=== PATIENT | male | born 1955 | race Caucasian/White ===

== ENCOUNTER 2023-08-12 12:34 | Outpatient (CLI) | payer MEDICARE, SELFPAY | END 2023-08-12 12:35 | disposition home or self-care (01) | LOC: CHSCARD 12:40 | PROVIDERS: PCP Family Medicine; Visit Provider Family Medicine | DX: J44.1 Chronic obstructive pulmonary disease with (acute) exacerbation (principal); R94.2 Abnormal results of pulmonary function studies | CPT/HCPCS: 94060; 94726; 94729 ==

== ENCOUNTER 2023-11-06 08:53 | Outpatient (CLI) | payer MEDICARE, SELFPAY ==
[2023-11-06 09:00] VITALS: PULSE 68; O2SAT 97
[2023-11-06 09:08] VITALS: PULSE 90; O2SAT 94
--- NOTE | 2023-11-06 11:02 | HOMEO2EVAL ---
Evaluation was performed at [facility] [place] Home Oxygen Evaluation RC: Home Oxygen (O2) Evaluation Start: 11/06/23 10:52 Freq: Status: Active Protocol: RPE Activity Type Activity Date Activity User E-sign Co-sign Detail Recorded Client Recorded Date Recorded By Document 11/06/23 09:00 JOHN [email or web address] 11/06/23 11:01 SJB Document 11/06/23 09:08 JOHN [email or web address] 11/06/23 11:01 SJB 11/06/23 11/06/23 09:00 09:08 Home O2 Evaluation [Oxygen] -Test Phase Resting Exercise -Oxygen Delivery Room Air Room Air [Pulse Oximetry] -Pulse Oximetry (90-100 %) 97 94 [Pulse Rate] -Pulse Rate (60-100 beats/min) 68 90 [Evaluation] -Activity Tolerance Good -Rating of Perceived Dyspnea (PD) +1 Mild, Noticeable to the Participant but Not to an Observer -Rate of Perceived Exertion (PE) 11 Fairly light Query Text:Click the Protocol Button to View the RPE Scale [Exercise] -Ambulation Distance (feet) 1,200 -Ambulation Distance (meters) 365.74 [Comments] -Home Oxygen Evaluation Comments Will begin walk Pt walked on room air. approx 1200 ft on room air, talking through eval. Tolerated very well. Sp02 remained at 94% and above. HR upt to 90/ [Charges] -Evaluation Charges O2 Evaluation Charge
== END 2023-11-06 08:54 | disposition home or self-care (01) ==
LOC: CHSCARD 08:54
PROVIDERS: PCP Family Medicine; Visit Provider Nurse Practitioner Family
DX: R06.09 Other forms of dyspnea (principal)
CPT/HCPCS: 94618

== ENCOUNTER 2023-11-13 07:46 | Outpatient (CLI) | payer MEDICARE, SELFPAY ==
--- NOTE | ~2023-11-13 | CT_ITS ---
EXAMINATION: CT chest high resolution wo co DATE: 11/13/2023 08:03 INDICATION: Lung disorder TECHNIQUE: Computed tomography (CT) of the chest was performed without intravenous contrast. Automate d exposure control and iterative reconstruction technique were employed. Exam dose: 173.16 mGy-cm to marc exam DLP. COMPARISON: None FINDINGS: Prominent rather diffuse peripheral bilateral honeycombing and septal soft tissue thickenin g and traction bronchiectasis, most consistent with usual interstitial pneumonia type pulmonary inter stitial fibrosis. No pulmonary consolidation or suspicious pulmonary mass lesion is identified. Multiple up to 9 x 14 mm prevascular lymph nodes. Mild right paratracheal and precarinal lymphadenopa thy. No hilar mass lesion or lymphadenopathy is noted. Thoracic aortic and great vessel and coronary artery calcifications. No thoracic aortic aneurysm. Nor mal heart size. No pericardial or pleural effusion. Small sliding hiatal hernia. Normal morphology of the adrenal glands. No suspicious osteolytic or osteoblastic lesions. Prominent degenerative disc disease in the lower ce rvical spine. IMPRESSION: Usual interstitial pneumonia chronic interstitial pulmonary fibrosis and mild mediastina l lymphadenopathy Reviewed, dictated and finalized at [facility]. Reviewed, dictated and finalized at location B. IMPRESSION: Usual interstitial pneumonia chronic interstitial pulmonary fibros is and mild mediastinal lymphadenopathy
== END 2023-11-13 07:47 | disposition home or self-care (01) ==
LOC: CHSIMG 07:47
PROVIDERS: PCP Family Medicine; Visit Provider Nurse Practitioner Family
DX: J98.4 Other disorders of lung (principal); J84.10 Pulmonary fibrosis, unspecified; R59.0 Localized enlarged lymph nodes
CPT/HCPCS: 71250

== ENCOUNTER 2023-11-26 07:35 | Outpatient (CLI) | payer MEDICARE, SELFPAY ==
[2023-11-26 09:20] LABS: Rheumatoid Factor Screen Negative (Negative)
[2023-11-28 20:39] LABS: ANA Cascade Screen Negative (Negative)
[2023-11-28 21:23] LABS: Anti Cyclic Citrullinated Pept <16 Units (<20)
== END 2023-11-26 07:36 | disposition home or self-care (01) ==
LOC: CHSLAB 07:36
PROVIDERS: PCP Family Medicine; Visit Provider Nurse Practitioner Family
DX: J84.9 Interstitial pulmonary disease, unspecified (principal)
CPT/HCPCS: 36415; 83516; 86038; 86200; 86225; 86235; 86430

== ENCOUNTER 2023-12-11 09:16 | Outpatient (CLI) | payer MEDICARE, SELFPAY | END 2023-12-11 09:17 | disposition home or self-care (01) | PROVIDERS: PCP Family Medicine | DX: M25.562 Pain in left knee (principal) | CPT/HCPCS: 73562 ==

== ENCOUNTER 2023-12-16 07:54 | Outpatient (RCR) | payer MEDICARE, SELFPAY ==
--- NOTE | 2023-12-16 08:58 | OPREHPOC ---
Outpatient Therapy Plan of Care This is a Multidisciplinary Plan of Care that may contain components documented by all disciplines (PT, OT, and ST.) PT Problem 1 PT Problem #1 Knowledge Deficit PT Goal 1 Goal patient to report independence with HEP Target Visit 3 PT Problem 2 PT Problem #2 Pain PT Goal 1 Goal 1. Patient to report highest pain at 2/10 Target Visit 6 PT Problem 3 PT Problem #3 Impaired Range of Motion PT Goal 1 Goal patient to demonstrate 135 deg of L knee flexion with no pain at end range to return to squatting to reach under car Target Visit 6 PT Problem 4 PT Problem #4 Impaired Strength PT Goal 1 Goal patient to demonstrate 5/5 strength of the L knee to return to climbing stairs and stepping up on alignment rack Target Visit 6 PT Problem 5 PT Problem #5 Impaired Functional Mobil PT Goal 1 Goal 1. patient to score less than 20% on LEFS 2. patient to lift 20# from floor with no increase in L knee pain 3. patient to report ability to ambulate 30 min with no increase in L knee pain Target Visit 6
--- NOTE | 2023-12-16 08:58 | PTOPEVAL1 ---
Assessment and note entered by Adriane Watson DPT Evaluation Information Assessment Status Evaluation Diagnosis L knee pain Onset 11/26/23 Subjective Information patient reports he was going down his stairs and felt a pop and has had knee pain since. patient report pain is at the medial border of the patellar tendon. he reports since then his pain has decreased. he has had x-rays that are negative . 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 he reports knee pain is worse with squatting, climbing, stair, and walking prolonged distances. he reports he is wearing a knee brace which seems to help. he reports he also has chronic back and L hip pain. he reports at this time he does not have a follow up with MD scheduled. Reported Pain Level Pain Score 0: Self Report Assessment PT Clinical Summary Mr. Fernández is a 68 year old male who presents to PT with L knee pain. He demonstrates decreased L knee flexion ROM and decreased L knee strength limiting his ability to navigate stairs, climb on alignment racks, squatting and ambulating prolonged distances. He would benefit from skilled PT to address impairments and return to PLOF. Plan of Care Interventions Electrical Stimulation,Gait Training,Hot Pack/Cold Pack,Manual Therapy,Patient/Caregiver Educati, Therapeutic Activities,Therapeutic Exercise PT Services Indicated Yes Treatment Frequency and 1x weekly for 6 visits Duration These treatments will address the objective and functional deficits as defined above. The patient will be advanced safely and appropriately in order for the patient to progress towards his/her prior level of function. Additional exercises will be introduced and as well as a comprehensive home exercise program upon discharge, if needed, ?to ensure carryover of functional gains achieved in the clinic. This treatment plan has been reviewed and agreement upon by the patient.
--- NOTE | 2023-12-30 08:00 | PCPTNOTE ---
Patient cancelled session today. Patient reports he cannot make it today.
== END 2023-12-23 20:00 | disposition home or self-care (01) ==
LOC: CHSPT 07:54
DX: M25.562 Pain in left knee (principal)
CPT/HCPCS: 97110; 97161

== ENCOUNTER 2023-12-31 10:46 | Outpatient (CLI) | payer MEDICARE, SELFPAY ==
[2024-01-06 11:47] LABS: Aspergillus fumigatus NEGATIVE (NEGATIVE)
== END 2023-12-31 10:47 | disposition home or self-care (01) ==
LOC: CHSLAB 10:47
PROVIDERS: PCP Family Medicine; Visit Provider Nurse Practitioner Family
DX: J84.9 Interstitial pulmonary disease, unspecified (principal)
CPT/HCPCS: 36415

== ENCOUNTER 2024-01-04 07:05 | Outpatient (CLI) | payer MEDICARE, SELFPAY ==
--- NOTE | ~2024-01-04 | MR_ITS ---
EXAMINATION: MR knee LT wo con DATE: 01/04/2024 10:52 INDICATION: Left knee pain. TECHNIQUE: Magnetic resonance imaging (MRI) of the left knee was performed without intravenous contra st. Sequences included axial PD-weighted FS FSE, coronal PD-weighted FSE and PD-weighted FS FSE, sagi ttal PD-weighted FSE, and sagittal T2-weighted FS FSE. COMPARISON: Left knee radiographs 12/11/2023 FINDINGS: Medial compartment: There is a radial tear of posterior horn of medial meniscus. There is full-thickness cartilage loss o f femoral condyle involving the central articular surface with mild subchondral edema-like marrow sig nal intensity. There is cartilage surface irregularity of tibial condyle. Lateral compartment: There is free edge fraying of body of lateral meniscus. Lateral compartment cartilage is normal. Patellofemoral compartment: Patellar cartilage is normal. Trochlear cartilage is normal. Ligaments and tendons: The anterior and posterior cruciate ligaments are normal. Medial collateral ligament is normal. There are changes of prior sprain of fibular collateral ligament characterized by thickening and increased signal intensity proximally. Patellar tendon is normal. Fluid: There is a large knee joint effusion. There is mild prepatellar and superficial infrapatellar bursiti s. There is trace fluid in a Hernandez's cyst. IMPRESSION: 1. Severe chondrosis of medial compartment. 2. Tear of medial meniscus. 3. Large knee joint effusion. Reviewed, dictated and finalized at location E.
== END 2024-01-04 07:06 | disposition home or self-care (01) ==
LOC: CHSIMG 07:06
PROVIDERS: PCP Family Medicine; Visit Provider Family Medicine
DX: M25.562 Pain in left knee (principal); M22.8X2 Other disorders of patella, left knee; S83.242A Other tear of medial meniscus, current injury, left knee, initial encounter; M25.462 Effusion, left knee
CPT/HCPCS: 73721

== ENCOUNTER 2024-03-24 10:45 | Outpatient (CLI) | payer MEDICARE, SELFPAY ==
[2024-03-24] VITALS (8 sets, daily range): PULSE 74–97; O2SAT 91–97
--- NOTE | 2024-03-24 12:10 | RCSIXMIN ---
Six Minute Walk RC: Six Minute Walk Start: 03/24/24 12:01 Freq: Status: Active Protocol: Activity Type Activity Date Activity User E-sign Co-sign Detail Recorded Client Recorded Date Recorded By Document 03/24/24 11:03 RES [id number] 03/24/24 12:05 RES Document 03/24/24 11:04 RES [id number] 03/24/24 12:05 RES Document 03/24/24 11:05 RES [id number] 03/24/24 12:05 RES Document 03/24/24 11:06 RES [id number] 03/24/24 12:09 RES Document 03/24/24 11:07 RES [id number] 03/24/24 12:09 RES Document 03/24/24 11:08 RES [id number] 03/24/24 12:09 RES Document 03/24/24 11:09 RES [id number] 03/24/24 12:09 RES Document 03/24/24 11:10 RES [id number] 03/24/24 12:09 RES 03/24/24 03/24/24 03/24/24 11:03 11:04 11:05 Six Minute Walk Test Phase Resting Exercise Exercise Oxygen Delivery Room Air Room Air Room Air Fraction of Inspired Oxygen (%) 21 21 21 Pulse Oximetry (90-100 %) 97 95 93 Pulse Rate (60-100 beats/min) 74 88 89 Activity Tolerance Good Good Good Rating of Perceived Dyspnea (PD) +1 Mild, +1 Mild, +2 Mild, Some Noticeable to Noticeable to Difficulty, the Participant the Participant Noticeable to but Not to an but Not to an the Observer Observer Observer Rate of Perceived Exertion (PE) 6 Very, very 9 Very light 10 light Ambulation Distance (feet) Ambulation Distance (meters) Charge Six Minute Walk 03/24/24 03/24/24 03/24/24 11:06 11:07 11:08 Six Minute Walk Test Phase Exercise Exercise Exercise Oxygen Delivery Room Air Room Air Room Air Fraction of Inspired Oxygen (%) 21 21 21 Pulse Oximetry (90-100 %) 92 93 92 Pulse Rate (60-100 beats/min) 93 95 93 Activity Tolerance Good Good Good Rating of Perceived Dyspnea (PD) +2 Mild, Some +2 Mild, Some +2 Mild, Some Difficulty, Difficulty, Difficulty, Noticeable to Noticeable to Noticeable to the Observer the Observer the Observer Rate of Perceived Exertion (PE) 12 13 Somewhat 14 Hard Ambulation Distance (feet) Ambulation Distance (meters) Charge 03/24/24 03/24/24 11:09 11:10 Six Minute Walk Test Phase Exercise Resting Oxygen Delivery Room Air Room Air Fraction of Inspired Oxygen (%) 21 21 Pulse Oximetry (90-100 %) 91 93 Pulse Rate (60-100 beats/min) 97 95 Activity Tolerance Good Good Rating of Perceived Dyspnea (PD) +2 Mild, Some +2 Mild, Some Difficulty, Difficulty, Noticeable to Noticeable to the Observer the Observer Rate of Perceived Exertion (PE) 14 14 Ambulation Distance (feet) 800 Ambulation Distance (meters) 243.82 Charge
--- NOTE | 2024-03-25 21:26 | P.PCNPFT_ITS ---
PFT Procedure Performed PFT Procedure Performed Spirometry with Pre/Post Bronchodilator Plethysmography (Lung Vol) Diffusing Cap (DLCO) Flow Vol Loop PFT Interpretation DOS: 03/24/2024 REQUESTING: Joseph Tadeo APRN REASON FOR TESTING: Pulmonary fibrosis PULMONARY FUNCTION TESTS Results are reliable and reproducible. The patient was unable to fully exhale with the pre and post FVC. 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 Spirometry: The pre-bronchodilator FEV1 is 1.71 L, 79% predicted. The pre- bronchodilator FVC is 2.01 L, 71% predicted. The FEV1/FVC ratio is 85%. After bronchodilator, the FEV1 is 1.51 L, 69%, -12%. The FVC is 2.22 L, 79%, +10%. The FEV1/FVC ratio is 68%. Lung volumes: The total lung capacity is 3.10 L, 67%. The residual volume is 1.09 L, 56%. The RV/TLC is 35%. Diffusion: DLCO is 6.6, 38%, severely reduced. The DLCO/VA is 2.35, 65%. Flow volume loop: The flow volume loop has an inspiratory limb that is not reproducible. IMPRESSION: This study shows no airway obstruction, mild restrictive impairment with decreased total lung capacity and severely reduced diffusion capacity which improves when alveolar volume is considered. Compared to a PFT 08/12/2023, current values are slightly improved. The total lung capacity previously was 3.21 L, 60%, similar to the value today. The DLCO was 6.4, 34%, similar on today's tests. FEV1 was 1.61 L, 63%, very similar to current testing. Same abnormal inspiratory loop. Nano Hearn MD
--- NOTE | 2024-03-25 21:38 | WPDSIXMINUTE ---
Six Minute Walk Procedure Procedure Performed Pulmonary Stress Test (6 min walk) Six Minute Walk Six Minute Walk: DATE OF SERVICE: 03/24/2024 REQUESTING: Joseph Tadeo APRN REASON FOR TESTING: pulmonary fibrosis SIX MINUTE WALK This test was conducted per ATS guidelines. The initial saturation was 97%, and initial heart rate was 74 beats per minute. The patient walked without stopping, completing 800 ft/ 243.8 m. The saturation at the end of testing was 91%, and the heart rate was 97 beats per minute. IMPRESSION: This is a normal study. The patient did not require supplemental oxygen with exertion. Nano Hearn MD
== END 2024-03-24 10:46 | disposition home or self-care (01) ==
LOC: CHSCARD 10:47
PROVIDERS: PCP Family Medicine; Visit Provider Nurse Practitioner Family
DX: J84.10 Pulmonary fibrosis, unspecified (principal)
CPT/HCPCS: 94060; 94618; 94726; 94729

== ENCOUNTER 2024-07-24 09:51 | Outpatient (CLI) | payer MEDICARE, SELFPAY ==
[2024-07-24 10:16] LABS: Hematocrit 38.5 % (37.0-46.0); Hemoglobin 13.3 g/dL (12.4-15.3); Mean Corpuscular HGB Conc 34.5 g/dL (32-36); Mean Corpuscular Hemoglobin 31.6 pg (27.0-31.0); Mean Corpuscular Volume 91.4 fL (78.0-102.0); Mean Platelet Volume 9.4 fl (8.7-11.0); Platelet Count Result 408 K/mm3 (150-420); Red Blood Count 4.21 M/mm3 (4.70-6.10)
[2024-07-24 10:23] LABS: White Blood Count 20.8 K/mm3 (4.8-10.8)
[2024-07-24 10:41] LABS: Alanine Aminotransferase 24 U/L (16-63); Albumin Level 3.5 g/dL (3.4-5.0); Alkaline Phosphatase 77 U/L (46-116); Amylase 63 U/L (25-115); Anion Gap 8 mmol/L (4-12); Aspartate Amino Transferase 20 U/L (15-37); Bilirubin,Total 1.2 mg/dL (0.00-1.00); Blood Urea Nitrogen 24 mg/dL (7-18); Calcium 9.2 mg/dL (8.5-10.1); Carbon Dioxide 28 mmol/L (21-32); Chloride 101 mmol/L (98-108); Estimated Glomerular Filt Rate > 60; Glucose 94 mg/dL (70-99); Lipase 47 U/L (16-77); Osmolality Calculated 288 mOsm/kg (285-295); Potassium 4.3 mmol/L (3.5-5.1); Sodium 137 mmol/L (136-145); Thyroid Stimulating Hormone 0.49 uIU/mL (0.36-3.74); Total Protein 6.6 g/dL (6.4-8.2)
[2024-07-24 10:44] LABS: Band Neutrophils Percent 1 % (0-6); Lymphocytes Absolute Manual 2.08 K/mm3 (1.1-4.5); Lymphocytes Percent Manual 10 % (18-44); Neutrophils Absolute Manual 17.26 K/mm3 (1.3-6.7); Neutrophils Percent Manual 82 % (46-73); Total Cells Counted 100
[2024-07-24 10:45] LABS: Basophils Percent Manual 0 % (0-1); Eosinophils Absolute Manual 0.41 K/mm3 (0.02-0.50); Eosinophils Percent Manual 2 % (1-6); Monocytes Absolute Manual 1.04 K/mm3 (0.1-0.90); Monocytes Percent Manual 5 % (3-9); Platelet Estimate Adequate (Adequate)
== END 2024-07-24 09:52 | disposition home or self-care (01) ==
PROVIDERS: PCP Family Medicine; Visit Provider Family Medicine
DX: R10.9 Unspecified abdominal pain (principal); I10 Essential (primary) hypertension; R19.7 Diarrhea, unspecified
CPT/HCPCS: 36415; 80053; 82150; 83690; 84443; 85025

== ENCOUNTER 2024-07-24 11:46 | Observation (INO) | payer MEDICARE, SELFPAY ==
--- NOTE | ~2024-07-24 | CT_ITS ---
EXAMINATION: CT abdomen pelvis w con DATE: 07/24/2024 12:28 INDICATION: Left lower quadrant abdominal pain. Leukocytosis. Likely prior stools. TECHNIQUE: Computed tomography (CT) of the abdomen and pelvis was performed with 100 mL Omnipaque-350 intravenous contrast. Automated exposure control and iterative reconstruction technique were employe d. The dose-length product was 246.84 mGy-cm. COMPARISON: None FINDINGS: Peripheral irregular septal line thickening with groundglass opacities and honeycombing in the visual ized bilateral lower lungs consistent with usual interstitial pneumonia (UIP) pattern chronic interst itial lung disease. Heart size is normal. No pericardial or pleural effusion. Wall thickening in the distal esophagus suggestive of esophagitis which in setting of reflux. Liver, gallbladder, spleen, pa ncreas, bilateral adrenal glands and kidneys are normal. There is mild colonic diverticulosis with a descending and sigmoid predominance. There is minimal amount of stranding along side a diverticulum t hickened wall at the proximal sigmoid colon consistent with diverticulitis. Small bowel and appendix are normal. Bladder is normal. Prostatomegaly. No abscess or free intraperitoneal gas or fluid. No p athologically enlarged abdominal or pelvic lymphadenopathy. There is calcified atherosclerosis of the aorta and many of the other arteries. There is prominent thrombus with occlusion, near occlusion anh nosis at the left common iliac artery. Moderate to severe lower lumbar spondylosis. IMPRESSION: 1. Radiographically uncomplicated sigmoid diverticulitis. 2. 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 3. Wall thickening the distal esophagus suggestive of esophagitis which could be due to reflux. Reviewed, dictated and finalized at location A. D ENGINEER IMPRESSION: 1. Radiographically uncomplicated sigmoid diverticulitis. 2. 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 3. Wall thickening the distal esophagus suggestive of esophagitis which could b e due to reflux.
[2024-07-24 11:53] VITALS: BP 113/62; PULSE 88; RESP 16; TEMP 36.6; O2SAT 97
--- NOTE | 2024-07-24 12:09 | ED.ABDPAIN ---
HPI - Abdominal Pain General Chief Complaint: Recheck/Abnormal Lab/Rx Stated Complaint: abnormal labs Source: patient Mode of arrival: ambulatory Limitations: no limitations History of Present Illness HPI narrative: Patient is a 69-year-old male with about a week history of left lower quadrant abdominal pain. The pain is progressively getting worse he came to the ER for evaluation. He was sent here from his primary doctor and they did blood work today [place] [id number]. He has a history of left lower quadrant abnormality but did not follow-up. patient is having dark tarry stools. He is having diarrhea. MD elicited complaint: abdominal pain ( Left lower quadrant) Pertinent past history: diverticulitis Onset (ago): week(s) (1) Pain Consistency: constant Location: LLQ Severity: moderate Pain scale (0-10): 4 Quality: dull Radiation: none Migration to: no migration Exacerbating factors: nothing Relieving factors: nothing Context: confirms history of similar episodes Associated symptoms: diarrhea and melena Treatments prior to arrival: other ( None) Related Data Home Medications Medication Instructions Recorded Confirmed atorvastatin 40 mg tablet 40 mg PO QHS 11/01/23 07/24/24 clopidogrel 75 mg tablet 75 mg PO DAILY 11/01/23 07/24/24 naproxen sodium 220 mg tablet 220 mg PO Q12H PRN Pain 11/01/23 07/24/24 (Aleve) lisinopril 20 1 tablet PO DAILY 07/24/24 07/24/24 mg-hydrochlorothiazide 12.5 mg tablet Allergies Allergy/AdvReac Type Severity Reaction Status Date / Time No Known Allergies Allergy Verified 07/24/24 12:01 Review of Systems Review of Systems: All systems reviewed & are unremarkable except as noted in HPI and below Constitutional: Constitutional: Reports no additional constitutional complaints Eyes: Eyes: Reports no additional eye complaints ENT: Reports system reviewed and no additional complaints, except as documented Cardiovascular: Cardiovascular: Reports no additional cardiovascular complaints Respiratory: Respiratory: Reports no additional respiratory complaints Gastrointestinal: Gastrointestinal: Reports no additional gastrointestinal complaints Genitourinary: Genitourinary: Reports no additional male genitourinary complaints Musculoskeletal: Musculoskeletal: Reports no additional musculoskeletal complaints Integumentary/Breasts: Skin/Breast: Reports system reviewed and no additional complaints, except as docu Neurologic: Reports system reviewed and no additional complaints, except as documented Psychiatric: Psychiatric: Reports no additional psychiatric complaints Endocrine: Endocrine: Reports no additional endocrine complaints Hematologic/Lymphatic: Hematologic/Lymphatic: Reports no additional hematologic/lymphatic complaints Allergic/Immunologic: Allergic/Immunologic: Reports no additional allergic/immunologic complaints PMFSH Past Medical History Medical History Bitten or stung by nonvenomous insect and other nonvenomous arthropods, initial encounter Body mass index 28.0-28.9, adult Cellulitis of right upper limb Chronic obstructive pulmonary disease with (acute) exacerbation Dermatitis, unspecified Effusion, left hand Encounter for immunization Encounter for screening for malignant neoplasm of colon Essential (primary) hypertension Hypertension Low back pain Mixed hyperlipidemia Otalgia, right ear Other elevated white blood cell count 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 Other specific arthropathies, not elsewhere classified, other specified site Pain in thoracic spine Radiculopathy, lumbar region Rash and other nonspecific skin eruption Rupture of colon Unspecified atherosclerosis of [place] arteries of extremities, bilateral legs Surgical History Surgical History History of bilateral cataract extraction History of corneal transplant Family History Family History Father Diabetes mellitus Mother Diabetes mellitus Sibling Diabetes mellitus Grandparent Breast cancer Social History Social History Smoking packs per day: 0.50 Smoking cigarettes per day: 10.0 Years smoked: 52 Smoking pack-years: 26.00 Smoking status: Current every day smoker Tobacco type: cigarettes Alcohol intake: never Substance use: never Substance use type: does not use Living arrangements: alone Occupation/Education: occupation 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 Exam Const: General: healthy appearing Nutritional Appearance: well nourished Orientation/consciousness: patient oriented x3 HENMT: Head: normal to inspection Ears: external ears normal Face/Nose/Sinus: Normal external nose present Eyes: Conjunctivae: conjunctivae normal Pupils: Equal, round and reactive pupils present EOM: EOMs intact bilaterally Neck: Neck: normal visual inspection Chest: Chest palpation & inspection: normal inspection of the chest Resp: Effort & Inspection: normal respiratory effort and not labored Auscultation: clear to auscultation bilaterally and no crackles Cardio: Rate: regular rate Rhythm: regular rhythm Heart sounds: no murmurs GI: Inspection: non-distended GI Palp: Yes Soft to palpation, Yes Tenderness to palpation present (GI) ( left lower quadrant), No Guarding due to palpation present (GI), No Rigid due to palpation, No Hernia present, No Palpable mass present and No Rebound tenderness present Auscultation: normal bowel sounds Other: rectal exam had an enlarged prostate symmetrical without nodules and a heme study was sent; rectum was clear of masses : General: Yes bladder normal to palpation Back/Spine/Pelvis: Back: no CVA tenderness Skin: General skin exam: normal color Rashes: no rashes Wounds: no wounds Neuro: General: patient oriented x3 Cranial nerves: Yes Nystagmus not present Speech: normal speech Extrem: General: normal to inspection Other: 1+ left pedal pulse ; see MDM Psych: Mental Status: mental status grossly normal Affect: normal affect Attitude: cooperative Course Vital Signs Vital signs: Vital Signs Temperature 36.6 C 07/24/24 11:53 Pulse Rate 88 07/24/24 11:53 Respiratory Rate 16 07/24/24 11:53 Blood Pressure 113/62 07/24/24 11:53 Pulse Oximetry 97 07/24/24 11:53 Oxygen Delivery Room Air 07/24/24 11:53 Temperature 36.6 C 07/24/24 11:53 Pulse Rate 88 07/24/24 11:53 Respiratory Rate 16 07/24/24 11:53 Blood Pressure 113/62 07/24/24 11:53 Pulse Oximetry 97 07/24/24 11:53 Oxygen Delivery Room Air 07/24/24 11:53 MDM - Abdominal Pain [facility] Narrative Medical decision making narrative: patient is a 69-year-old male with left lower quadrant pain. We will do an abdominal pain workup at this time. 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 We will transfer at this time. patient was found to have 3 findings which is pneumonia and diverticulitis and a left-sided common iliac artery occlusion. After long discussion and recurrent discussion with Dr. Morel who is vascular surgery at [facility], patient has been found on CT scan after his review that this is chronic in nature and not acute appearing. He said outpatient follow-up at [facility] vascular surgery clinic with the telephone [phone] to make an appointment. Patient is on Plavix already and in the chart has had some changes of peripheral artery disease back from 2015 and this appears to be chronic in addition to the surgeon's opinion today as well. Examination shows a firm oral strong Doppler finding as well as pedal pulse which was less strong on the Doppler both on the left side. Patient will be admitted to this hospital for diverticulitis treatment only and follow-up to be made with Dr. Morel at follow-up as an outpatient for the peripheral artery disease finding. Examination does not show any left lower extremity changes of peripheral artery disease at this time and the patient has no complaints of PAD or claudication. Lab Data Attestation: I reviewed the patient's lab results. 07/24/24 12:42 07/24/24 12:42 Labs: Lab Results 07/24/24 07/24/24 Range/Units 12:42 13:45 WBC 18.2 H (4.8-10.8) K/mm3 RBC 3.97 L (4.70-6.10) M/mm3 Hgb 12.4 (12.4-15.3) g/dL Hct 36.4 L (37.0-46.0) % MCV 91.7 (78.0-102.0) fL MCH 31.2 H (27.0-31.0) pg MCHC 34.1 (32-36) g/dL RDW 14.0 (11.6-14.4) % Plt Count 396 (150-420) K/mm3 MPV 9.3 (8.7-11.0) fl Immature Gran % (Auto) 0.5 H (0.0-0.0) % Neut % (Auto) 77.7 H (50.0-70.0) % Lymph % (Auto) 10.8 L (18.0-42.0) % [place] % (Auto) 9.4 (2.0-11.0) % Eos % (Auto) 1.2 (1.0-6.0) % Baso % (Auto) 0.4 (0.0-1.0) % Lymph # (Auto) 1.97 (1.10-4.50) K/mm3 [place] # (Auto) 1.72 H (0.10-0.90) K/mm3 Eos # (Auto) 0.22 (0.02-0.50) K/mm3 Baso # (Auto) 0.08 (0.00-0.10) K/mm3 Abs Immat Gran (auto) 0.09 H (0.00-0.00) K/mm3 Absolute Neuts (auto) 14.16 H (1.70-7.20) K/mm3 Absolute Nucleated RBC 0.00 (0.00-0.00) K/mm3 Nucleated RBC % 0.0 (0-0.0) % PT 11.0 (9.50-12.1) Seconds INR 1.0 APTT 26.3 (23.9-30.70) Sec Sodium 135 L (136-145) mmol/L Potassium 3.7 (3.5-5.1) mmol/L Chloride 99 (98-108) mmol/L Carbon Dioxide 24 (21-32) mmol/L Anion Gap 12 (4-12) mmol/L BUN 24 H (7-18) mg/dL Creatinine 1.16 (0.70-1.30) mg/dL Estim Creat Clear Calc 45 ml/min Estimated GFR > 60 (59 - ) Glucose 94 (70-99) mg/dL Calculated Osmolality 284 L (285-295) mOsm/kg Lactic Acid 1.4 (0.4-2.0) mmol/L Calcium 8.7 (8.5-10.1) mg/dL Total Bilirubin 1.1 H (0.00-1.00) mg/dL AST 21 (15-37) U/L ALT 21 (16-63) U/L Alkaline Phosphatase 267 H (46-116) U/L Total Protein 6.4 (6.4-8.2) g/dL Albumin 3.1 L (3.4-5.0) g/dL Urine Color Yellow (Yellow) Urine Appearance Clear (Clear) Urine pH 6.0 (5.0-8.0) Ur Specific [place] <= 1.005 L (1.010-1.020) Urine Protein Negative (Negative) Urine Glucose (UA) Negative (Negative) Urine Ketones Negative (Negative) Ur Blood (Man) Negative (Negative) Urine Nitrate Negative (Negative) Urine Bilirubin Negative (Negative) Urine Urobilinogen 0.2 (0.2-1.0) mg/dL Leukocyte Esterase Rfl Negative (Negative) MARSHA/UL Stool Occult Blood Negative (Negative) Imaging Data Attestation: I personally reviewed and interpreted this imaging study as follows: Radiologist's impression: ITS Impressions Abdomen/Pelvis CT 07/24/24 12:31 IMPRESSION: 1. Radiographically uncomplicated sigmoid diverticulitis. 2. 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 3. Wall thickening the distal esophagus suggestive of esophagitis which could be due to reflux. Discharge Plan Discharge Clinical Impression: Diverticulitis, Stenosis of common iliac artery, Pneumonia Patient Disposition: Acute Care Hospital Condition: Serious Prescriptions: No Action lisinopril-hydrochlorothiazide 20-12.5 mg tablet 1 tablet PO DAILY atorvastatin 40 mg tablet 40 mg PO QHS clopidogrel 75 mg tablet 75 mg PO DAILY naproxen sodium [Aleve] 220 mg tablet 220 mg PO Q12H PRN (Reason: Pain) Incruse Ellipta 62.5 mcg/actuation blister with device 1 inh inhalation Q24H Qty: 30 11RF albuterol sulfate 90 mcg/actuation HFA aerosol inhaler 1 - 2 puff inhalation Q4-6H PRN (Reason: shortness of breath or wheezing) Qty: 8.5 2RF Follow-up/Referrals: Mandeep Lee MD [Primary Care Provider] - Time of Disposition: 12:51
[2024-07-24 12:50] LABS: Add Urine Microscopic? NO; Appearance Urine Clear (Clear); Basophils Absolute Auto 0.08 K/mm3 (0.00-0.10); Basophils Percent Auto 0.4 % (0.0-1.0); Bilirubin Urine Negative (Negative); Blood Urine Negative (Negative); Color Urine Yellow (Yellow); Eosinophils Absolute Auto 0.22 K/mm3 (0.02-0.50); Eosinophils Percent Auto 1.2 % (1.0-6.0); Glucose Urine UA Negative (Negative); Hematocrit 36.4 % (37.0-46.0); Hemoglobin 12.4 g/dL (12.4-15.3); Immature Granulocyte Absolute 0.09 K/mm3 (0.00-0.00); Immature Granulocyte Percent A 0.5 % (0.0-0.0); Ketones Urine Negative (Negative); Leukocyte Esterase Ur Negative LEU/UL (Negative); Lymphocytes Absolute Auto 1.97 K/mm3 (1.10-4.50); Lymphocytes Percent Auto 10.8 % (18.0-42.0); Mean Corpuscular HGB Conc 34.1 g/dL (32-36); Mean Corpuscular Hemoglobin 31.2 pg (27.0-31.0); Mean Corpuscular Volume 91.7 fL (78.0-102.0); Mean Platelet Volume 9.3 fl (8.7-11.0); Monocytes Absolute Auto 1.72 K/mm3 (0.10-0.90); Monocytes Percent Auto 9.4 % (2.0-11.0); Neutrophils Absolute Auto 14.16 K/mm3 (1.70-7.20); Neutrophils Percent Auto 77.7 % (50.0-70.0); Nitrate Urine Negative (Negative); Platelet Count Result 396 K/mm3 (150-420); Protein Urine Negative (Negative); Red Blood Count 3.97 M/mm3 (4.70-6.10); Specific Grav Ur <= 1.005 (1.010-1.020); Urobilinogen Urine 0.2 mg/dL (0.2-1.0); White Blood Count 18.2 K/mm3 (4.8-10.8)
[2024-07-24 13:04] LABS: Partial Thromboplastin Time 26.3 Sec (23.9-30.70)
[2024-07-24 13:05] LABS: Alanine Aminotransferase 21 U/L (16-63); Albumin Level 3.1 g/dL (3.4-5.0); Alkaline Phosphatase 267 U/L (46-116); Anion Gap 12 mmol/L (4-12); Aspartate Amino Transferase 21 U/L (15-37); Bilirubin,Total 1.1 mg/dL (0.00-1.00); Blood Urea Nitrogen 24 mg/dL (7-18); Calcium 8.7 mg/dL (8.5-10.1); Carbon Dioxide 24 mmol/L (21-32); Chloride 99 mmol/L (98-108); Estimated CRCL calculation 45 ml/min; Estimated Glomerular Filt Rate > 60; Glucose 94 mg/dL (70-99); Osmolality Calculated 284 mOsm/kg (285-295); Potassium 3.7 mmol/L (3.5-5.1); Sodium 135 mmol/L (136-145); Total Protein 6.4 g/dL (6.4-8.2)
[2024-07-24 13:08] LABS: Lactic Acid Reflex 1.4 mmol/L (0.4-2.0)
[2024-07-24] MEDS: PIPERACILLN/TAZ 3.375GM/NS50ML 3.375 GM/50 ML BAG IVPB (13:12)
[2024-07-24 13:56] LABS: Occult Blood Negative (Negative)
[2024-07-24 15:50] VITALS: BP 107/72; PULSE 85; RESP 14; TEMP 36.4; O2SAT 96
[2024-07-24 16:36] VITALS: BP 113/71; PULSE 79; RESP 16; TEMP 36.7; O2SAT 95; BMI 26.8
--- NOTE | 2024-07-24 17:39 | PC.NURSE ---
Patient arrived to unit at 1655 and was admitted to room 226. Patient able to transfer from w/c to bed unassisted. Patient educated on use of call lights, bed controls, activation of rapid response, visiting hours and general hospital policies, including infection and fall precautions. Patient voiced understanding and received folder with admission information.
[2024-07-24] MEDS: CIPROFLOXACIN 400 MG/D5W 200ML 200 ML 200 MG IVPB (17:52)
[2024-07-24] MEDS: metroNIDAZOLE 250 MG TABLET 500 MG PO (21:20)
[2024-07-24] MEDS: ATORVASTATIN 40 MG TABLET PO (21:21)
[2024-07-25] VITALS: BP 133/69; PULSE 74; RESP 16; TEMP 36.6; O2SAT 96
[2024-07-25 05:17] LABS: Basophils Absolute Auto 0.11 K/mm3 (0.00-0.10); Basophils Percent Auto 0.7 % (0.0-1.0); Eosinophils Absolute Auto 0.39 K/mm3 (0.02-0.50); Eosinophils Percent Auto 2.4 % (1.0-6.0); Hematocrit 37.5 % (37.0-46.0); Hemoglobin 12.7 g/dL (12.4-15.3); Immature Granulocyte Absolute 0.04 K/mm3 (0.00-0.00); Immature Granulocyte Percent A 0.2 % (0.0-0.0); Lymphocytes Absolute Auto 2.19 K/mm3 (1.10-4.50); Lymphocytes Percent Auto 13.6 % (18.0-42.0); Mean Corpuscular HGB Conc 33.9 g/dL (32-36); Mean Corpuscular Hemoglobin 31.2 pg (27.0-31.0); Mean Corpuscular Volume 92.1 fL (78.0-102.0); Mean Platelet Volume 9.7 fl (8.7-11.0); Monocytes Absolute Auto 1.69 K/mm3 (0.10-0.90); Monocytes Percent Auto 10.5 % (2.0-11.0); Neutrophils Absolute Auto 11.63 K/mm3 (1.70-7.20); Neutrophils Percent Auto 72.6 % (50.0-70.0); Platelet Count Result 361 K/mm3 (150-420); Red Blood Count 4.07 M/mm3 (4.70-6.10); Red Cell Distribution Width 13.8 % (11.6-14.4); White Blood Count 16.1 K/mm3 (4.8-10.8)
[2024-07-25 05:48] LABS: Alkaline Phosphatase 75 U/L (46-116); Anion Gap 8 mmol/L (4-12); Blood Urea Nitrogen 18 mg/dL (7-18); Calcium 9.1 mg/dL (8.5-10.1); Carbon Dioxide 28 mmol/L (21-32); Chloride 103 mmol/L (98-108); Estimated CRCL calculation 45 ml/min; Estimated Glomerular Filt Rate > 60; Glucose 96 mg/dL (70-99); Osmolality Calculated 289 mOsm/kg (285-295); Potassium 4.7 mmol/L (3.5-5.1); Sodium 139 mmol/L (136-145)
[2024-07-25 06:00] LABS: Alanine Aminotransferase 21 U/L (16-63); Aspartate Amino Transferase 18 U/L (15-37)
[2024-07-25 06:01] LABS: Bilirubin,Total 0.8 mg/dL (0.00-1.00); Magnesium 1.8 mg/dL (1.8-2.4)
[2024-07-25] MEDS: metroNIDAZOLE 250 MG TABLET 500 MG PO ×2 (06:19→14:37)
[2024-07-25] MEDS: CIPROFLOXACIN 400 MG/D5W 200ML 200 ML 200 MG IVPB (06:19)
[2024-07-25 08:00] VITALS: BP 105/72; PULSE 81; RESP 16; TEMP 36.4; O2SAT 100
--- NOTE | 2024-07-25 09:00 | P.HP_ITS ---
H&P: HPI History of Present Illness Date/Time: 07/25/24 09:00 Chief Complaint: abdominal pain PMFSH Past Medical History Medical History Bitten or stung by nonvenomous insect and other nonvenomous arthropods, initial encounter Body mass index 28.0-28.9, adult Cellulitis of right upper limb Chronic obstructive pulmonary disease with (acute) exacerbation Dermatitis, unspecified Effusion, left hand Encounter for immunization Encounter for screening for malignant neoplasm of colon Essential (primary) hypertension Hypertension Low back pain Mixed hyperlipidemia Otalgia, right ear Other elevated white blood cell count 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 Other specific arthropathies, not elsewhere classified, other specified site Pain in thoracic spine Radiculopathy, lumbar region Rash and other nonspecific skin eruption Rupture of colon Unspecified atherosclerosis of [place] arteries of extremities, bilateral legs Surgical History Surgical History History of bilateral cataract extraction History of corneal transplant Family History Family History Father Diabetes mellitus Mother Diabetes mellitus Sibling Diabetes mellitus Grandparent Breast cancer Social History Social History Smoking packs per day: 1 Smoking cigarettes per day: 20.0 Years smoked: 25 Smoking pack-years: 25.00 Smoking status: Current every day smoker Tobacco type: cigarettes Second hand tobacco smoke exposure: Yes Alcohol intake: never Substance use: never Substance use type: does not use Do You Feel Safe in your Home?: Yes Lack of Transportation: No Lack of Food: Never True Current Housing: I Have Housing Concerned About Future Housing: No Difficulty Paying Gas/Electric Bills: No Difficulty Paying for Meds: No Currently Unemployed: No Education: High School Diploma/GED Difficulty w/ Childcare or Family Care: No Living arrangements: alone Occupation/Education: occupation 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 Spiritual care concerns: No Meds Home Medications and Allergies Home Medications Medication Instructions Recorded Confirmed Type atorvastatin 40 mg tablet 40 mg PO QHS 11/01/23 07/24/24 History clopidogrel 75 mg tablet 75 mg PO DAILY 11/01/23 07/24/24 History naproxen sodium 220 mg tablet 220 mg PO Q12H PRN Pain 11/01/23 07/24/24 History (Aleve) Incruse Ellipta 62.5 mcg/actuation 1 inh inhalation Q24H #30 ea 03/13/24 07/24/24 Rx powder for inhalation (umeclidinium) albuterol sulfate 90 mcg/actuation 1 - 2 puff inhalation Q4-6H PRN 03/13/24 07/24/24 Rx aerosol inhaler shortness of breath or wheezing #8.5 grams lisinopril 20 1 tablet PO DAILY 07/24/24 07/24/24 History mg-hydrochlorothiazide 12.5 mg tablet Allergies Allergy/AdvReac Type Severity Reaction Status Date / Time No Known Allergies Allergy Verified 07/24/24 12:01 Vital Signs Vital Signs - 24 hr 07/24/24 11:53 07/24/24 15:50 07/24/24 16:36 Temperature 97.9 F 97.6 F 98.1 F Pulse Rate 88 85 79 Respiratory Rate 16 14 16 Blood Pressure 113/62 107/72 113/71 Pulse Oximetry 97 96 95 Oxygen Delivery Room Air Room Air Room Air 07/25/24 00:00 07/25/24 08:00 Temperature 97.8 F 97.6 F Pulse Rate 74 81 Respiratory Rate 16 16 Blood Pressure 133/69 105/72 Pulse Oximetry 96 100 Oxygen Delivery Room Air Room Air H&P: Results Labs Labs: Short CBC 07/24/24 07/25/24 Range/Units 12:42 05:04 WBC 18.2 H 16.1 H (4.8-10.8) K/mm3 Hgb 12.4 12.7 (12.4-15.3) g/dL Hct 36.4 L 37.5 (37.0-46.0) % Plt Count 396 361 (150-420) K/mm3 BMP 07/24/24 07/25/24 12:42 05:04 Sodium 135 L 139 Potassium 3.7 4.7 Chloride 99 103 Carbon Dioxide 24 28 BUN 24 H 18 Creatinine 1.16 1.07 Glucose 94 96 Calcium 8.7 9.1 Liver Function 07/24/24 07/25/24 Range/Units 12:42 05:04 Total Bilirubin 1.1 H 0.8 (0.00-1.00) mg/dL AST 21 18 (15-37) U/L ALT 21 21 (16-63) U/L Alkaline Phosphatase 267 H 75 (46-116) U/L Albumin 3.1 L 3.0 L (3.4-5.0) g/dL Urine 07/24/24 Range/Units 12:42 Urine Color Yellow (Yellow) Urine Appearance Clear (Clear) Urine pH 6.0 (5.0-8.0) Ur Specific [place] <= 1.005 L (1.010-1.020) Urine Protein Negative (Negative) Urine Glucose (UA) Negative (Negative)
[2024-07-25] MEDS: UMECLIDINIUM BROMIDE 62.5 MCG ELLIPTA 1 PUFF INHALATION (09:06)
[2024-07-25] MEDS: CLOPIDOGREL BISULFATE 75 MG TABLET PO (09:06)
[2024-07-25] MEDS: lisinopriL 20 MG TABLET PO (09:06)
[2024-07-25] MEDS: ENOXAPARIN 40 MG/0.4 ML SYRINGE SUB-Q (09:06)
[2024-07-25] MEDS: hydroCHLOROthiazide 12.5 MG CAPSULE PO (09:06)
--- NOTE | 2024-07-25 15:25 | PM.SD2 ---
Same Day Admit/Disch: HPI History of Present Illness Chief complaint: abnormal labs Narrative: Solitario Fernández is a 69 year old male with a significant past medical history of hypertension, hyperlipidemia, low back pain, current everyday smoker who presented to the hospital with lower quadrant abdominal pain that progressively gotten worse yesterday and dark tarry stools. He was seen by his primary care doctor and they [place] [id number]. he denies any fever, chills, nausea, vomiting, diarrhea, abdominal pain, chest pain, shortness a breath. He states that the dark tarry stools has resolved and his abdominal pain has also resolved the time of my assessment. 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 Initial labs showed a white blood cell count of 20.8, RBC 4.21, INR 1.0, hemoglobin 13.3, total bili 1.2, TSH 0.49, lipase 47. A UA was obtained and only showed a urine specific gravity less than 1.005 otherwise normal. Blood cultures were ordered and showing no growth to date on preliminary read. He was started on Cipro and Flagyl. He denies any fever, chills, nausea, vomiting, diarrhea, abdominal pain, chest pain, shortness a breath. He states that the dark tarry stools has resolved and his abdominal pain has also resolved the time of my assessment. 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 Other specific arthropathies, not elsewhere classified, other specified site Pain in thoracic spine Radiculopathy, lumbar region Rash and other nonspecific skin eruption Rupture of colon Unspecified atherosclerosis of [place] arteries of extremities, bilateral legs Surgical History Surgical History History of bilateral cataract extraction History of corneal transplant Family History Family History Father Diabetes mellitus Mother Diabetes mellitus Sibling Diabetes mellitus Grandparent Breast cancer Social History Social History Smoking packs per day: 1 Smoking cigarettes per day: 20.0 Years smoked: 25 Smoking pack-years: 25.00 Smoking status: Current every day smoker Tobacco type: cigarettes Second hand tobacco smoke exposure: Yes Alcohol intake: never Substance use: never Substance use type: does not use Do You Feel Safe in your Home?: Yes Lack of Transportation: No Lack of Food: Never True Current Housing: I Have Housing Concerned About Future Housing: No Difficulty Paying Gas/Electric Bills: No Difficulty Paying for Meds: No Currently Unemployed: No Education: High School Diploma/GED Difficulty w/ Childcare or Family Care: No Living arrangements: alone Occupation/Education: occupation 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 Spiritual care concerns: No Same Day Admit/Disch: Med Pre-admit Medications Home Medications Medication Instructions Recorded Confirmed Type atorvastatin 40 mg tablet 40 mg PO QHS 11/01/23 07/24/24 History clopidogrel 75 mg tablet 75 mg PO DAILY 11/01/23 07/24/24 History naproxen sodium 220 mg tablet 220 mg PO Q12H PRN Pain 11/01/23 07/24/24 History (Aleve) Incruse Ellipta 62.5 mcg/actuation 1 inh inhalation Q24H #30 ea 03/13/24 07/24/24 Rx powder for inhalation (umeclidinium) albuterol sulfate 90 mcg/actuation 1 - 2 puff inhalation Q4-6H PRN 03/13/24 07/24/24 Rx aerosol inhaler shortness of breath or wheezing #8.5 grams lisinopril 20 1 tablet PO DAILY 07/24/24 07/24/24 History mg-hydrochlorothiazide 12.5 mg tablet ciprofloxacin HCl 500 mg tablet 500 mg PO Q12H #18 tabs 07/25/24 Rx (Cipro) metronidazole 250 mg tablet 500 mg PO Q8HR #18 tabs 07/25/24 Rx Review of Systems Review of Systems All systems reviewed & are unremarkable except as noted in HPI and below Constitutional Constitutional: Reports as per HPI and Reports no additional constitutional complaints Eyes Eyes: Reports as per HPI and Reports no additional eye complaints ENT Reports system reviewed and no additional complaints, except as documented and Reports as per HPI Cardiovascular Cardiovascular: Reports as per HPI and Reports no additional cardiovascular complaints Respiratory Respiratory: Reports as per HPI and Reports no additional respiratory complaints Gastrointestinal Gastrointestinal: Reports as per HPI and Reports no additional gastrointestinal complaints Genitourinary Genitourinary: Reports no additional male genitourinary complaints and Reports as per HPI Musculoskeletal Musculoskeletal: Reports no additional musculoskeletal complaints and Reports as per HPI Integumentary/Breasts Skin/Breast: Reports system reviewed and no additional complaints, except as docu and Reports as per HPI Neurologic Reports system reviewed and no additional complaints, except as documented and Reports as per HPI Psychiatric Psychiatric: Reports no additional psychiatric complaints and Reports as per HPI Endocrine Endocrine: Reports no additional endocrine complaints and Reports as per HPI Hematologic/Lymphatic Hematologic/Lymphatic: Reports no additional hematologic/lymphatic complaints and Reports as per HPI Allergic/Immunologic Allergic/Immunologic: Reports no additional allergic/immunologic complaints and Reports as per HPI Exam Narrative: General: In no acute distress, well nourished Head: atraumatic, no encephalopathy Eyes: PERRLA, sclera clear ENT: moist mucous membranes, nasal passages clear Neck: supple, no JVD, no adenopathy, trachea midline Cardiac: Normal S1 and S2. No murmur, gallops or friction rubs, peripheral pulses intact. Respiratory: Lungs clear to auscultation, no adventitious lung sounds , currently on room air Gastrointestinal: soft, non-distended, non-tender, normoactive bowel sounds. : voiding without difficulty. Extremities: moves all extremities well, no edema, good ROM, strength 5/5 Skin: clean, dry, intact. No wounds or lesions. Neuro: Alert and oriented x4, cranial nerves intact, no neuro deficits. Psych: normal mood, normal affect, interactive DS: Data Data Completed and Pending Completed studies during hospitalization: CT of the abdomen pelvis Pending studies at discharge: blood cultures Labs on day of discharge: Labs from last 24 hours 07/25/24 05:04 WBC 16.1 H RBC 4.07 L Hgb 12.7 Hct 37.5 MCV 92.1 MCH 31.2 H MCHC 33.9 RDW 13.8 Plt Count 361 MPV 9.7 Immature Gran % (Auto) 0.2 H Neut % (Auto) 72.6 H Lymph % (Auto) 13.6 L [place] % (Auto) 10.5 Eos % (Auto) 2.4 Baso % (Auto) 0.7 Lymph # (Auto) 2.19 [place] # (Auto) 1.69 H Eos # (Auto) 0.39 Baso # (Auto) 0.11 H Abs Immat Gran (auto) 0.04 H Absolute Neuts (auto) 11.63 H Absolute Nucleated RBC 0.00 Nucleated RBC % 0.0 Sodium 139 Potassium 4.7 Chloride 103 Carbon Dioxide 28 Anion Gap 8 BUN 18 Creatinine 1.07 Estim Creat Clear Calc 45 Estimated GFR > 60 Glucose 96 Calculated Osmolality 289 Calcium 9.1 Magnesium 1.8 Total Bilirubin 0.8 AST 18 ALT 21 Alkaline Phosphatase 75 Total Protein 6.0 L Albumin 3.0 L Preliminary micro results at discharge 07/24/24 12:42 Blood Culture - Preliminary Blood 07/24/24 12:42 Blood Culture - Preliminary Blood Procedures/Treatments: none Imaging Radiologist's impression: EXAMINATION: CT abdomen pelvis w con DATE: 07/24/2024 12:28 INDICATION: Left lower quadrant abdominal pain. Leukocytosis. Likely prior stools. TECHNIQUE: Computed tomography (CT) of the abdomen and pelvis was performed with 100 mL Omnipaque-350 intravenous contrast. Automated exposure control and iterative reconstruction technique were employed. The dose-length product was 246.84 mGy-cm. COMPARISON: None FINDINGS: Peripheral irregular septal line thickening with groundglass opacities and honeycombing in the visualized bilateral lower lungs consistent with usual interstitial pneumonia (UIP) pattern chronic interstitial lung disease. Heart size is normal. No pericardial or pleural effusion. Wall thickening in the distal esophagus suggestive of esophagitis which in setting of reflux. Liver, gallbladder, spleen, pancreas, bilateral adrenal glands and kidneys are normal. There is mild colonic diverticulosis with a descending and sigmoid predominance. There is minimal amount of stranding along side a diverticulum thickened wall at the proximal sigmoid colon consistent with diverticulitis. Small bowel and appendix are normal. Bladder is normal. Prostatomegaly. No abscess or free intraperitoneal gas or fluid. No pathologically enlarged abdominal or pelvic lymphadenopathy. There is calcified atherosclerosis of the aorta and many of the other arteries. There is prominent thrombus with occlusion, near occlusion stenosis at the left common iliac artery. Moderate to severe lower lumbar spondylosis. IMPRESSION: 1. Radiographically uncomplicated sigmoid diverticulitis. 2. 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 3. Wall thickening the distal esophagus suggestive of esophagitis which could be due to reflux. Reviewed, dictated and finalized at location A. N AND BOMB INVESTIGATOR DS: Summary Hospital Course Reason for hospitalization: abdominal pain diverticulitis Hospital Course: Solitario Fernández is a 69 year old male with a significant past medical history of hypertension, hyperlipidemia, low back pain, current everyday smoker who presented to the hospital with lower quadrant abdominal pain that progressively gotten worse yesterday and dark tarry stools. He was seen by his primary care doctor and they did blood [place] [address]. 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 Initial labs showed a white blood cell count of 20.8, RBC 4.21, INR 1.0, hemoglobin 13.3, total bili 1.2, TSH 0.49, lipase 47. A UA was obtained and only showed a urine specific gravity less than 1.005 otherwise normal. Blood cultures were ordered and showing no growth to date on preliminary read. He was started on Cipro and Flagyl with improvement in his symptoms overnight. Patient states that his dark tarry stools have resolved and he is feeling much better. He would like to go home today which is reasonable. His vital signs are stable, he is afebrile, he is currently on room air. He denies any fever, chills, nausea, vomiting, diarrhea, abdominal pain, chest pain, shortness a breath. he is stable for discharge at this time. He was sent home with a prescription for Cipro and Flagyl for another 9 days and will need to get a CBC done on Saturday. He will then follow up with his primary in 1-2 weeks. final diagnosis: diverticulitis Status at Discharge Cognitive/behavioral status at discharge: Alert oriented x4 Functional status at discharge: independent ambulation Overall status at discharge: patient is progressing back to baseline Time Spent with Patient Time attestation: Total time spent providing and/or coordinating discharge services: Time spent: Greater than 30 minutes DS: Admitting Diagnosis Discharge Date 07/25/24 Admitting Diagnosis diverticulitis DS: Discharge Diagnosis Discharge Diagnosis (1) Diverticulitis: Code(s): K57.92 - Diverticulitis of intestine, part unspecified, without perforation or abscess without bleeding Status: Acute Discharge Plan Discharge Attending physician on discharge: Shayan Jordan Discharging Clinician: Cami Foster Anticipated Discharge Date/Time: 07/25/24 15:18 Patient Disposition: Home, Self-Care Activity: as tolerated Diet: as tolerated and low fiber Discharge Instructions: Finish all antibiotics as directed even if you are feeling better. Follow up with primary care doctor in 1 week Recheck labs on Saturday. Patient Instructions: Antibiotic Form, Diverticulitis (ED) Patient Language: [place] Stand Alone Forms: General Discharge Information Follow-up/Referrals: Mandeep Lee MD [Primary Care Provider] - 1 week Discharge Medications: New metronidazole 250 mg Tablet 500 mg PO Q8HR Qty: 18 0RF ciprofloxacin HCl [Cipro] 500 mg tablet 500 mg PO Q12H Qty: 18 0RF Continued lisinopril-hydrochlorothiazide 20-12.5 mg tablet 1 tablet PO DAILY atorvastatin 40 mg tablet 40 mg PO QHS clopidogrel 75 mg tablet 75 mg PO DAILY naproxen sodium [Aleve] 220 mg tablet 220 mg PO Q12H PRN (Reason: Pain) Incruse Ellipta 62.5 mcg/actuation blister with device 1 inh inhalation Q24H Qty: 30 11RF albuterol sulfate 90 mcg/actuation HFA aerosol inhaler 1 - 2 puff inhalation Q4-6H PRN (Reason: shortness of breath or wheezing) Qty: 8.5 2RF Other Ambulatory Orders: Complete Blood Count with Diff (Routine) Timeframe: 3 Days Location: Determined by Patient Ordered By: Cami Foster Date of admission: 07/24/24 16:14 Primary Care Provider: Mandeep Lee Admitting Provider: Shayan Jordan Attending physician on admission: Cami Foster Condition: Improved Quality VTE Prophylaxis VTE prophylaxis: pharmacologic ordered Hospitalist MIPS Advance Care Plan I have confirmed that the patient's Advanced Care Plan is present, code status is documented, or surrogate decision maker is listed in patient medical record.: Yes Medication Reconciliation I have utilized all available resources to obtain, update and review the patients current medications (includes all prescriptions, OTC, herbals, cannabis, and nutritional supplements).: Yes Heart Failure (Exclusion) Patient has history of Heart Transplant or Left Ventricular Assistive Device?: No IF YES, STOP HERE Heart Failure (Qualifier) Patient has current or prior documentation of LVEF less than or equal to 40%, or mod/servere depressed LVSF?: No IF NO, STOP HERE
--- NOTE | 2024-07-25 16:07 | PC.NURSE ---
Patient discharged to home per private vehicle, reviewed discarge plan and voices understanding.
--- NOTE | 2024-07-27 09:50 | PC.NURSE ---
Doing better, no questions regarding dc instructions, to see lung doctor this week
== END 2024-07-25 16:09 | disposition home or self-care (01) ==
LOC: CHSED 13:36 → CHS2ND 16:15
PROVIDERS: Nurse Practitioner Acute Care; Admitting Provider Internal Medicine; Emergency Provider Emergency Medicine; PCP Family Medicine; Visit Provider Internal Medicine
DX: K57.32 Diverticulitis of large intestine without perforation or abscess without bleeding (principal); I74.5 Embolism and thrombosis of iliac artery; J18.9 Pneumonia, unspecified organism; J44.0 Chronic obstructive pulmonary disease with (acute) lower respiratory infection; F17.210 Nicotine dependence, cigarettes, uncomplicated; I10 Essential (primary) hypertension; E78.2 Mixed hyperlipidemia; M54.16 Radiculopathy, lumbar region; I70.203 Unspecified atherosclerosis of native arteries of extremities, bilateral legs; Z79.02 Long term (current) use of antithrombotics/antiplatelets; Z79.51 Long term (current) use of inhaled steroids; Z79.899 Other long term (current) drug therapy; Z94.7 Corneal transplant status; Z98.42 Cataract extraction status, left eye; Z98.41 Cataract extraction status, right eye
CPT/HCPCS: 36415; 74177; 80053; 81003; 82272; 83605; 83735; 85025; 85610; 85730; 87040; 96365; 96366; 96367; 96372; 99285; A9270; G0378; J0744; J1650; J2543; Q9967

== ENCOUNTER 2024-08-12 15:20 | Outpatient (CLI) | payer MEDICARE, SELFPAY ==
[2024-08-12 15:42] LABS: Basophils Absolute Auto 0.05 K/mm3 (0.00-0.10); Basophils Percent Auto 0.4 % (0.0-1.0); Eosinophils Absolute Auto 0.17 K/mm3 (0.02-0.50); Eosinophils Percent Auto 1.3 % (1.0-6.0); Hematocrit 40.1 % (37.0-46.0); Hemoglobin 13.6 g/dL (12.4-15.3); Immature Granulocyte Absolute 0.07 K/mm3 (0.00-0.00); Immature Granulocyte Percent A 0.5 % (0.0-0.0); Lymphocytes Absolute Auto 1.77 K/mm3 (1.10-4.50); Lymphocytes Percent Auto 13.3 % (18.0-42.0); Mean Corpuscular HGB Conc 33.9 g/dL (32-36); Mean Corpuscular Hemoglobin 31.1 pg (27.0-31.0); Mean Corpuscular Volume 91.8 fL (78.0-102.0); Mean Platelet Volume 9.6 fl (8.7-11.0); Monocytes Absolute Auto 1.45 K/mm3 (0.10-0.90); Monocytes Percent Auto 10.9 % (2.0-11.0); Neutrophils Absolute Auto 9.75 K/mm3 (1.70-7.20); Neutrophils Percent Auto 73.6 % (50.0-70.0); Platelet Count Result 431 K/mm3 (150-420); Red Blood Count 4.37 M/mm3 (4.70-6.10); Red Cell Distribution Width 13.7 % (11.6-14.4); White Blood Count 13.3 K/mm3 (4.8-10.8)
[2024-08-12 15:43] LABS: Add Urine Microscopic? NO; Appearance Urine Clear (Clear); Bilirubin Urine Negative (Negative); Blood Urine Negative (Negative); Color Urine Light Yellow (Yellow); Glucose Urine UA Negative (Negative); Ketones Urine Negative (Negative); Leukocyte Esterase Ur Negative (Negative); Nitrate Urine Negative (Negative); Protein Urine Negative (Negative); Specific Grav Ur 1.025 (1.010-1.020); Urobilinogen Urine 0.2 mg/dL (0.2-1.0)
[2024-08-12 16:19] LABS: Alanine Aminotransferase 22 U/L (16-63); Albumin Level 3.5 g/dL (3.4-5.0); Alkaline Phosphatase 83 U/L (46-116); Amylase 59 U/L (25-115); Anion Gap 9 mmol/L (4-12); Aspartate Amino Transferase 19 U/L (15-37); Bilirubin,Total 0.9 mg/dL (0.00-1.00); Blood Urea Nitrogen 22 mg/dL (7-18); Calcium 9.3 mg/dL (8.5-10.1); Carbon Dioxide 27 mmol/L (21-32); Chloride 100 mmol/L (98-108); Estimated Glomerular Filt Rate > 60; Glucose 77 mg/dL (70-99); Lipase 32 U/L (16-77); Osmolality Calculated 284 mOsm/kg (285-295); Potassium 4.2 mmol/L (3.5-5.1); Sodium 136 mmol/L (136-145); Total Protein 6.5 g/dL (6.4-8.2)
== END 2024-08-12 15:21 | disposition home or self-care (01) ==
LOC: CHSLAB 15:22
PROVIDERS: PCP Family Medicine; Visit Provider Family Medicine
DX: R10.9 Unspecified abdominal pain (principal); R19.7 Diarrhea, unspecified
CPT/HCPCS: 36415; 80053; 81003; 82150; 83690; 85025

== ENCOUNTER 2024-08-14 15:57 | Outpatient (CLI) | payer MEDICARE, SELFPAY ==
[2024-08-14 16:53] LABS: Toxigenic C. Diff POSITIVE (NEGATIVE)
[2024-08-14 16:53] LABS: Toxigenic C. Diff POSITIVE (NEGATIVE)
== END 2024-08-14 15:58 | disposition home or self-care (01) ==
PROVIDERS: PCP Family Medicine; Visit Provider Family Medicine
DX: R10.9 Unspecified abdominal pain (principal); R19.7 Diarrhea, unspecified
CPT/HCPCS: 87493

== ENCOUNTER 2024-11-03 12:52 | Outpatient (CLI) | payer MEDICARE, SELFPAY ==
--- NOTE | ~2024-11-03 | CT_ITS ---
EXAMINATION:CT chest high resolution wo ok DATE: 11/03/2024 13:10 INDICATION: Pulmonary fibrosis, unspecified. TECHNIQUE: Computed tomography (CT) of the chest was performed without intravenous contrast. Automate d exposure control and iterative reconstruction technique were employed. The dose-length product (DLP ) was 147.76 mGy-cm. COMPARISON: Chest CT 11/13/2023 FINDINGS: There is widespread septal thickening in the lungs with peripheral predominance with geremias ectural distortion associated with groundglass opacities. There is honeycombing in all lobes. Calcifi ed pulmonary nodules are consistent with old granulomatous disease. No pleural effusion. Cardiomegaly is noted. There are coronary artery calcifications. No pericardial effusion. There is mild mediastin al lymphadenopathy, likely reactive. There is mild bilateral gynecomastia. There is moderate thoracic spondylosis. IMPRESSION: 1. Chronic interstitial lung disease in a pattern of usual interstitial pneumonia (UIP), stable from 11/13/2023. 2. Chronic mild mediastinal lymphadenopathy, likely reactive. Reviewed, dictated and finalized at location B. IMPRESSION: 1. Chronic interstitial lung disease in a pattern of usual interstitial pneumon ia (UIP), stable from 11/13/2023. 2. Chronic mild mediastinal lymphadenopathy, likely reactive.
--- OUTSIDE RECORDS SUMMARY | 2024-11-03 14:14 | XMS_ITS | Continuity of Care Document ---
Author Organization [facility] [place] [id number] [place] [address] Dr Murrell [address] [place] [phone] Phone Care Team Providers Care Vial Gauger Name Role Phone Frantz Montoya MD Unavailable Unavailable Allergies, Adverse Reactions, Alerts Substance Reaction Status Criticality No Known Allergies Active No Inform ation Medications Medication Instructions Dosage Effective Dates (start - stop) Status Comments Polytrim 10,000 unit-1 mg/mL eye drops Instill one drop into right eye 4 times daily for 5 days then stop - Active atorvastatin 40 mg tablet take 1 tablet by oral route every day 40 MG - Active clopidogrel 75 mg tablet take 1 tablet by oral route every day 75 MG - Active lisinopril 30 mg tablet take 1 tablet by oral route every day 30 MG - Active Procedures Procedure Date Remove Foreign Body Eye External, Cornea l With Slit Lamp No Charge Optomap Fundus Photos 023 Eye Exam & Treatment No Charge Optomap Fundus Photos 022 Office/outpatient Visit, Est Fundus Photography W/ Report Eye Exam & Treatment Office/outpatient Visit, Est Office/outpatient Visit, Est Remove Foreign Body From Eye Office/outpatient Visit, Est Office/outpatient Visit, Est Remove Foreign Body From Eye Office/outpatient Visit, Est Remove Foreign Body From Eye Office/outpatient Visit, New Advance Directives Directive Yes / No Effective Date File Name No Information Encounters Encounter Description Practice Location Reason(s) For Visit Diagnoses Date Provider Providers Copied on Encounter [facility], [address], [place], [place], [id number], [place] tel:[phone] SEC Kalpesh SMITH Professional Metallic FB (chief complaint) Foreign body of right cornea, initial encounter 3 Jan Landry. [address] [facility] [address], [place], [place], [address], [place]. tel:[phone] Referring Provider: Kishan Rollins OD, [facility] [address], [place], [address]. tel:[phone] [facility], [address], [place], [place], [address], [place] tel:[phone] SEC Kalpesh SMITH Professional Complete Exam (chief complaint) Corneal transplant statusPresence of intraocular lensPVD (posterior vitreous detachment), bilateral 3 Jan Landry. [address], [address], [place], [place], [address], [place]. tel:[phone] Referring Provider: Kishan Rollins OD, [facility] [address], [place], [address]. tel:[phone] Office/outpa tient Visit, Est [facility], [facility] [address], [place], [place], [address], [place] tel:[phone] SEC Kalpesh SMITH Professional 6 month cornea check (chief complaint) Corneal transplant statusPresence of intraocular lensRight corneal scar with opacity 2 Ragini OD Sandra. [address], [address], [place], [place], [address], [place]. tel:[phone] Referring Provider: Kishan Rollins OD, [facility] [address], [place], [address]. tel:[phone] [facility], [address], [place], [place], [address], [place] [phone] SEC Kalpesh SMITH Professional Complete Exam (chief complaint) Corneal transplant statusRight corneal scar with opacityPresenc e of intraocular lensHypertensi ve retinopathy of right eye 1 Jan Landry. [address], [place], [place], [address], [place]. tel:[phone] Referring Provider: Kishan Rollins OD, [facility] [address] [place], [address]. tel:[phone] Office/outpa tient Visit, [facility], [address] [place] [address] [address], [place], [place], [address], [place] tel:[phone] SEC Kalpesh SMITH Professional FB OS f/u (chief complaint) Corneal transplant statusRight corneal scar with opacityForeign body of left cornea, subsequent encounter 0 Jan Landry. [address], [address], [place], [place], [address], [place]. tel:[phone] Referring Provider: Kishan Rollins OD, [facility] [address] [place], [address]. tel:[phone] Office/outpa tient Visit, [facility], [address] [place] [address] [address], [place], [place], [address], [place] [phone] SEC Kalpesh SMITH Professional FB removal f/u OS (chief complaint) Corneal transplant statusRight corneal scar with opacityForeign body of left cornea, subsequent encounter 0 Jan Landry. [address], [place], [place], [address], [place]. tel:[phone] Referring Provider: Kishan Rollins OD, [facility] [address] [place], [address]. tel:[phone] Office/outpa tient Visit, [facility], [address] [place] [address] [address], [place], [place], [address], [place] tel:[phone] SEC Kalpesh SMITH Professional WIE (chief complaint) Foreign body in cornea, left eye, initial encounter 0 Jan Landry. [address], [place], [place], [address], [place]. tel:[phone] Referring Provider: Kishan Rollins OD, [facility] [address] [place], [address]. tel:[phone] Office/outpa tient Visit, [facility], [address] [place] [address] [address], [place], [place], [address], [place] tel:[phone] SEC Kalpesh SMITH Professional 2 week FB f/u (chief complaint) Foreign body in cornea, right eye, subsequent encounter 0 Jan Landry. [address], [address], [place], [place], [address], [place]. tel:[phone] Referring Provider: Kishan Rollins OD, [facility] [address] [place], [address]. tel:[phone] Office/outpa tient Visit, [facility], [address] [place] [address] [address], [place], [place], [address], [place] [phone] SEC Kalpesh SMITH Professional 2 week f/u on FB removal (chief complaint) Foreign body in cornea, right eye, subsequent encounter 0 Jan Landry. [address], [place], [place], [address], [place]. tel:[phone] Referring Provider: Kishan Rollins OD, [facility] [address] [place], [address]. tel:[phone] Office/outpa tient Visit, [facility], [address] [place] [address] [address], [place], [place], [address], [place] [phone] [facility] Professional WIE (chief complaint) Foreign body of right cornea, initial encounterCorne al transplant statusRight corneal scar with opacity 0 Jan Landry. [address] [facility], [address], [place], [place], [address], [place]. tel:[phone] Referring Provider: Kishan Rollins OD, [facility] [address] [facility], [place], [address]. tel:[phone] Family History Family Member Type Diagnosis Age At Onset No Information Payers Payer name Insurance type Covered alliance party ID Authoriza tion(s) [employer] Md[employer] Gold Adv Prime CI [id number] Social History Type Description Quantity Date Captured Comments Alcohol Use Details No Caffeine Use Details Tobacco Use Status Moderate cigarette smoker (10-19 cigs/day) Smoking Status Heavy tobacco smoker Smoking Tobacco Use Details Cigarette: Age Started: 22 Cigarette: 12 Cigarettes per day Sex Male Chief Complaint And Reason For Visit From encounter dated '11/29/2022 10:45'. Metallic FB (chief complaint). Description: The 67 year old patient presents for evaluation of Metallic FB in the right eye. Pt reports he thinks he got metal in OD at work yesterday. Pt states OD feels really irritated. Reason For Referral Reason For Referral No Information Plan Of Treatment Date Type Action Status Goal Tobacco cessation counseling completed Goal Tobacco cessation counseling completed Goal Tobacco cessation counseling completed Goal Tobacco cessation counseling completed Goal Tobacco cessation counseling completed Goal Tobacco cessation counseling completed Goal Tobacco cessation counseling completed Goal Tobacco cessation counseling completed Goal Tobacco cessation counseling completed Goal Tobacco cessation counseling completed Patient Education Feeling of an Object in the Eye: Care Instructions completed Patient Education Corneal Transp lant (Partial Thickness): Before Your Surgery completed Patient Education Corneal Transplant (Ful l Thickness): ~ completed Patient Education Feeling of an Object in the Eye: Care~ completed Patient Education Object in the Eye: Care Instructions completed Patient Education Object in the Eye: Care Instructions completed Patient Education Object in the Eye: Care Instructions completed History Of Present Illness Encounter Date Complaint History Of Prese nt Illness Metallic FB The 67 year old patient presents for evaluation of Metallic FB in the right eye. Pt reports he thinks he got metal in OD at work yesterday. Pt states OD feels really irritated. Complete Exam The 67 year old patient presents for a complete exam ou. Patient is pseudo ou and has PK OS. Patient does not use any drops. Patient denies any changes in vision ou. Patient wears reading glasses. 6 month cornea check The 66 year old patient presents for evaluation of 6 month cornea check in the right eye and left eye. Hx of PCIOL OU, PKP OS, K-scar OD, and Hypertension retinopathy OD. Patient denies any problems or changes with eyes. VA seems stable. Patient states he was suppose to be seen in October but was on a different insurance then, so he said he is a couple month from October. Complete Exam The 65 year old male presents for evaluation of Complete Exam in the right eye and left eye. Hx of PCIOL OU, PKP OS, K scar OD, and Metallic FB OS. Pt reports he has been out of Pred for about 1 mo and he was only using it every couple days OS. Pt reports he isn't currently using gtts, OU. Pt reports VA is good, OU. FB OS f/u The 64 year old male presents for evaluation of FB OS f/u. Pt reports good comfort and stable vision OS. Pt denies FBS OS at this time. Pt reports taking Pred BID OS. FB removal f/u OS The 64 year ol d male presents for evaluation of FB removal f/u OS. Pt reports good comfort OS, but not much improvement in vision OS since last visit. Pt reports taking Polytrim QID OS and Pred QID OS. Pt reports shooting pain occasionally OS and is wondering if they are related to pred and poly he is taking. Pt denies this happening when he took the drops for the previous eye. WIE The 64 year old male presents for evaluation of WIE in the left eye. Patient has PK OS. Patient states he woke up yesterday and OS was red and feels irritated. Patient has FBS OS. 2 week FB f/u The 64 year old male presents for evaluation of 2 week FB f/u in the right eye. Patient states the right eye is doing much better. Patient done with gtts. 2 week f/u on FB removal The 64 year old male presents for evaluation of 2 week f/u on FB removal in the right eye. Patient states the right eye maybe a little better VA still blurry. Patient using Pred and Poly qid OD. WIE The 64 year old male presents for evaluation of WIE in the right eye. Hx of PCIOL OU and PKP OS x3 (1978). Patient states he got a piece of metal in his right eye yesterday at work. Patient states he had safety glasses on. Patient states he was working underneath a car when this happened. Patient states he just has a FBS no other symptoms. Patient only uses Visine to was out eyes? No gtts for transplant eye. Functional Status Date Functional Assessmen t No Information Instructions Date Instruction Additional Williamr tyrell Impression/Plan Impression/Plan Impression/Plan Impression/Plan Impression/Plan Impression/Plan Impression/Plan Impression/Plan Impression/Plan Impression/Plan Assessments Type Assessment Date assessment Foreign body of right cornea, in itial encounter Patient Care Teams Name Effective Dates (start - stop) Status Members No Information
--- OUTSIDE RECORDS SUMMARY | 2024-11-03 14:14 | XMS_ITS | Clinical Summary ---
Author Organization 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 4 Active clopidogrel (PLAVIX) 75 MG tablet Take 1 tablet (75 mg total) by mouth daily. 4 Active lisinopril-hydr oCHLOROthiazide (ZESTORETIC) 20-12.5 MG tablet Take 1 tablet by mouth daily. 4 Active Spacer/Aero-Hol ding Chambers (OPTICHAMBER CABRERA) Misc USE NEEDED WITH METERED DOSE INHALER 3 Active Active Problems Problem Noted Date Diagnosed Date PAD (peripheral artery disease) 09/01/2024 Mixed hyperlipidemia 09/01/2024 Primary hypertension 09/01/2024 Primary osteoarthritis of left knee 02/11/2024 Encounters Date Type Department Care Team Description 10/13/2024 Telephone [facility] [address] [place] [address] Catarino Peterson MD Appointment Request 09/29/2024 9:30 AM COMMUNITY HEALTH EDUCATOR Office Visit [facility] [place] [address] Catarino Peterson MD Follow Up 09/29/2024 Travel 09/22/2024 1:17 PM COMMUNITY HEALTH EDUCATOR - 09/22/2024 11:59 PM COMMUNITY HEALTH EDUCATOR Hospital Encounter [facility] [address] [place] [address] Catarino Peterson MD Discharge Disposition: Home or Self Care (Routine Discharge) 09/22/2024 Travel 09/03/2024 [facility] [address] [place] [address] Catarino Peterson MD Schedule Test (MARC and Carotid duplex ) 09/01/2024 1:45 PM COMMUNITY HEALTH EDUCATOR Office Visit [facility] [id number] [place] [address] Catarino Peterson MD Leg Pain 09/01/2024 Travel 08/05/2024 Abstract [facility] [address] [place] [address] Abstract, Doc Pccl from Last 3 Months Family History Medical History Relation Comments CABG Father x3 Diabetes Father Hypertension Father Peripheral vascular disease Father had stent or similar procedure on leg Stroke Father Diabetes Mother Diabetes Sister Relation Status Comments Father Mother Sister Social History Tobacco Use Types Packs/Day Years Used Date Smoking Tobacco: Every Day Cigarettes Smokeless Tobacco: Never Tobacco Cessation:Ready to Q uit: Not Asked; Counseling Given: Not Answered Alcohol Use Standard Drinks/Week Comments Not Currently 0 (1 standard drink = 0.6 oz pur e alcohol) Comments Unknown Sex and Gender Information Value Date Recorded Sex Assigned at Choose not to disclose 2:37 PM COMMUNITY HEALTH EDUCATOR Legal Sex Male 9:36 PM COMMUNITY HEALTH EDUCATOR Gender Identity Not on file Sexual Orientation Not on file Last Filed Vital Signs Vital Sign Reading Time Taken Comments Blood Pressure 115/61 09/29/2024 9:19 AM COMMUNITY HEALTH EDUCATOR Pulse 79 09/29/2024 9:19 AM COMMUNITY HEALTH EDUCATOR Temperature - - Respiratory Rate 20 09/29/2024 9:19 AM COMMUNITY HEALTH EDUCATOR Oxygen Saturation 99% 09/29/2024 9:19 AM COMMUNITY HEALTH EDUCATOR Inhaled Oxygen Concentration - - Weight 68.3 kg (150 lb 9.6 oz) 09/29/2024 9:19 A M COMMUNITY HEALTH EDUCATOR Height 160 cm (5' 3 ) 09/29/2024 9:19 AM COMMUNITY HEALTH EDUCATOR Body Mass Index 26.68 09/29/2024 9:19 AM COMMUNITY HEALTH EDUCATOR Plan of Treatment Upcoming Encounters Date Type Department Care Team (Late st Contact Info) Description 01/26/2025 9:45 AM CDT Office Visit [facility] [place] [address] Matthew Melendez MD [address] [facility] [address] [place] [address] Health Maintenance Due Date Last Done Comments ASCVD LDL 1955 Colorectal Cancer Screening Colonoscopy (10 Years) 1955 Hepatitis C 1974 Zoster Vaccines (2 of 3) 08/16/2017 06/21/2017 Annual Medicare Wellness Visit 2021 COVID-19 Vaccine ( season) 2024 Influenza Adult (#1) 2024 07/24/2023, 07/03/2022, 06/06/2021, Additional history exists DTaP, Tdap and Td Vaccines (2 - Td or Tdap) 04/04/2025 04/04/2015 RSV Immunization or 60+ Years (1 - 1-dose 75+ series) 2031 Pneumococcal Vaccine: 65+ Years Completed 07/24/2023, 06/21/2017 Meningococcal B Vaccine Aged Out No l onger eligible based on patient's age to complete this topic Meningococcal Vaccine Aged Out No narayan jay eligible based on patient's age to complete this topic RSV Immunizations Under 20 Months Aged Out No longer eligible based on patient's age to complete this topic Procedures Procedure Name Priority Date/Time Associated Diagnosis Comments USV CAROTID DUPLEX PITA Routine 09/22/2024 4:12 PM COMMUNITY HEALTH EDUCATOR PAD (peripheral artery disease) Mixed hyperlipidemia Primary hypertension 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 Nonspecific abnormal finding on cardiac evaluation USV MARC LTD PITA Routine 09/22/2024 4:12 PM COMMUNITY HEALTH EDUCATOR PAD (peripheral artery disease) Mixed hyperlipidemia Primary hypertension from Last 3 Months Results * USV CAROTID DUPLEX PITA (09/22/2024 4:12 PM COMMUNITY HEALTH EDUCATOR) Anatomical Region Laterality Modality Neck Ultrasound 09/22/2024 1:46 PM COMMUNITY HEALTH EDUCATOR Narrative 09/22/2024 4:21 PM COMMUNITY HEALTH EDUCATOR [facility] Carotid Ultrasound Vascular Report Pat.Name: Solitario Fernández Pat.ID: [id number] .Date: 09/22/2024 Refer.MD: Ana María, [facility] Exam Time: 1:46:00 PM Study Type:OUTREACH CAROTID SCAN BILATERAL Age: 10 1955,69Y Sex: M Sonogrphr: Am Pat. Stat.:Outpatient Reason for Study:PAD (peripheral artery disease), Mixed hyperlipidemia, Primary hypertension, shelter current use of anticoagulant therapy, Nonspecific abnormal finding on cardiac evaluation Procedures: Study performed at [place], [place] and interpreted by [facility]. ++++++++++++++++++++++++++++++++++++ SUMMARY: ++++++++++++++++++++++++++++++++++++ Rt ICA: 0-39% stenosis with plaque noted in the internal carotid artery. Lt ICA: 0-39% stenosis with plaque noted in the internal carotid artery. ++++++++++++++++++++++++++++++++++++ FINDINGS: ++++++++++++++++++++++++++++++++++++ Rt ICA: 0-39% stenosis with plaque noted in the internal carotid artery. Lt ICA: 0-39% stenosis with plaque noted in the internal carotid artery. ++++++++++++++++++++++++++++++++++++ MEASUREMENTS: ++++++++++++++++++++++++++++++++++++ DOPPLER Right Prox CCA Prox CCA PSV 92 cm/s Prox CCA EDV 21 cm/s Right Dist CCA Dist CCA PSV 87 cm/s Dist CCA EDV 24 cm/s Right Prox ICA Prox ICA PSV 86 cm/s Prox ICA EDV 29 cm/s Right Mid ICA Mid ICA PSV 95 cm/s Mid ICA EDV 34 cm/s Right Dist ICA Dist ICA PSV 83 cm/s Dist ICA EDV 32 cm/s Right Prox ECA Prox ECA PSV 75 cm/s Right Bifurcation Bifurcation PSV 76 cm/s Bifurcation EDV 24 cm/s Right Vertebral Vertebral PSV 51 cm/s Vertebral EDV 13 cm/s Right ICA/CCA RATIO ICA/CCA RATIO P 1.09 Left Prox CCA Prox CCA PSV 105 cm/s Prox CCA EDV 21 cm/s Left Dist CCA Dist CCA PSV 104 cm/s Dist CCA EDV 28 cm/s Left Prox ICA Prox ICA PSV 85 cm/s Prox ICA EDV 26 cm/s Left Mid ICA Mid ICA PSV 86 cm/s Mid ICA EDV 33 cm/s Left Dist ICA Dist ICA PSV 77 cm/s Dist ICA EDV 29 cm/s Left Prox ECA Prox ECA PSV 83 cm/s Prox ECA EDV 12 cm/s Left Bifurcation Bifurcation PSV 71 cm/s Bifurcation EDV 18 cm/s Left Vertebral Vertebral PSV 79 cm/s Vertebral EDV 23 cm/s Left ICA/CCA RATIO ICA/CCA RATIO P 0.827 <Electronic Signature> 09/22/2024 04:21 PM Catarino Peterson M.D. Procedure Note Catarino Peterson MD - 09/22/2024 Outreach Carotid Ultrasound Vascular Report Pat.Name: Solitario Fernández Pat.ID: [id number] .Date: 09/22/2024 Refer.MD: Ana María, [facility] Exam Time: 1:46:00 PM Study Type:OUTREACH CAROTID SCAN BILATERAL Age: 10 1955,69Y Sex: M Sonogrphr: Am Pat. Stat.:Outpatient Reason for Study:PAD (peripheral artery disease), Mixed hyperlipidemia, Primary hypertension, shelter current use of anticoagulant therapy, Nonspecific abnormal finding on cardiac evaluation Procedures: Study performed at [facility], [place], [place] and interpreted by [facility]. ++++++++++++++++++++++++++++++++++++ SUMMARY: ++++++++++++++++++++++++++++++++++++ Rt ICA: 0-39% stenosis with plaque noted in the internal carotid artery. Lt ICA: 0-39% stenosis with plaque noted in the internal carotid artery. ++++++++++++++++++++++++++++++++++++ FINDINGS: ++++++++++++++++++++++++++++++++++++ Rt ICA: 0-39% stenosis with plaque noted in the internal carotid artery. Lt ICA: 0-39% stenosis with plaque noted in the internal carotid artery. ++++++++++++++++++++++++++++++++++++ MEASUREMENTS: ++++++++++++++++++++++++++++++++++++ DOPPLER Right Prox CCA Prox CCA PSV 92 cm/s Prox CCA EDV 21 cm/s Right Dist CCA Dist CCA PSV 87 cm/s Dist CCA EDV 24 cm/s Right Prox ICA Prox ICA PSV 86 cm/s Prox ICA EDV 29 cm/s Right Mid ICA Mid ICA PSV 95 cm/s Mid ICA EDV 34 cm/s Right Dist ICA Dist ICA PSV 83 cm/s Dist ICA EDV 32 cm/s Right Prox ECA Prox ECA PSV 75 cm/s Right Bifurcation Bifurcation PSV 76 cm/s Bifurcation EDV 24 cm/s Right Vertebral Vertebral PSV 51 cm/s Vertebral EDV 13 cm/s Right ICA/CCA RATIO ICA/CCA RATIO P 1.09 Left Prox CCA Prox CCA PSV 105 cm/s Prox CCA EDV 21 cm/s Left Dist CCA Dist CCA PSV 104 cm/s Dist CCA EDV 28 cm/s Left Prox ICA Prox ICA PSV 85 cm/s Prox ICA EDV 26 cm/s Left Mid ICA Mid ICA PSV 86 cm/s Mid ICA EDV 33 cm/s Left Dist ICA Dist ICA PSV 77 cm/s Dist ICA EDV 29 cm/s Left Prox ECA Prox ECA PSV 83 cm/s Prox ECA EDV 12 cm/s Left Bifurcation Bifurcation PSV 71 cm/s Bifurcation EDV 18 cm/s Left Vertebral Vertebral PSV 79 cm/s Vertebral EDV 23 cm/s Left ICA/CCA RATIO ICA/CCA RATIO P 0.827 <Electronic Signature> 09/22/2024 04:21 PM Catarino Peterson M.D. us Catarino Peterson MD US VASC Final Result * USV MARC LTD PITA (09/22/2024 4:12 PM COMMUNITY HEALTH EDUCATOR) Anatomical Region Laterality Modality Extremity Ultrasound 09/22/2024 2:09 PM COMMUNITY HEALTH EDUCATOR Narrative 09/23/2024 4:47 PM COMMUNITY HEALTH EDUCATOR Outreach Arterial Doppler MARC Vascular Report Pat.Name: Solitario Fernández Pat.ID: [id number] .Date: 09/22/2024 Refer.MD: Ana María, [facility] Exam Time: 2:09:00 PM Study Type:OUTREACH ART DOPPLER - MARC Age: 10 1955,69Y Sex: M Sonogrphr: padilla Lopez rdms, rvt, rdcs Pat. Stat.:Outpatient Reason for Study:PAD (peripheral artery disease), Mixed hyperlipidemia, Primary hypertension Procedures: Study performed at [facility], [place], [place] and interpreted by [facility]. ++++++++++++++++++++++++++++++++++++ SUMMARY: ++++++++++++++++++++++++++++++++++++ MARC Rt: The resting MARC is 0.94. MARC Rt: This suggests borderline peripheral arterial disease. MARC Rt: Pulse volume tracings suggest no peripheral arterial occlusive disease. MARC Rt: The toe pressure is 92 mmHg. MARC Rt: The TBI is 0.67. MARC Rt: TBI is within abnormal range. MARC Lt: The resting MARC is 0.64. MARC Lt: This suggests moderate disease. MARC Lt: Pulse volume tracings suggest mild peripheral arterial occlusive disease. MARC Lt: The toe pressure is 53 mmHg. MARC Lt: The TBI is 0.39. MARC Lt: TBI is within abnormal range. ++++++++++++++++++++++++++++++++++++ FINDINGS: ++++++++++++++++++++++++++++++++++++ MARC Rt: The resting MARC is 0.94. This suggests borderline peripheral arterial disease. Pulse volume tracings suggest no peripheral arterial occlusive disease. The toe pressure is 92 mmHg. The TBI is 0.67. TBI is within abnormal range. MARC Lt: The resting MARC is 0.64. This suggests moderate disease. Pulse volume tracings suggest mild peripheral arterial occlusive disease. The toe pressure is 53 mmHg. The TBI is 0.39. TBI is within abnormal range. ++++++++++++++++++++++++++++++++++++ MEASUREMENTS: ++++++++++++++++++++++++++++++++++++ PRESSURES Right Brachial Brach P 137 mmHg Right Ankle DP AnkleDP P 126 mmHg Right Ankle PT AnklePT P 129 mmHg Right Great Toe GreatToe P 92 mmHg Right MARC PT MARC PT 0.942 Right MARC DP MARC DP 0.92 Right TBI TBI 0.672 Left Brachial Brach P 130 mmHg Left Ankle DP AnkleDP P 75 mmHg Left Ankle PT AnklePT P 88 mmHg Left Great Toe GreatToe P 53 mmHg Left MARC PT MARC PT 0.642 Left MARC DP MARC DP 0.547 Left TBI TBI 0.387 <Electronic Signature> 09/23/2024 04:47 PM Catarino Peterson M.D. Procedure Note Catarino Peterson MD - 09/23/2024 Outreach Arterial Doppler MARC Vascular Report Pat.Name: Solitario Fernández Pat.ID: [id number] .Date: 09/22/2024 [place].MD: [place] Time: 2:09:00 PM Study Type:OUTREACH ART DOPPLER - MARC Age: 10 1955,69Y Sex: M Sonogrphr: padilla Lopez rdms, rvt, rdcs Pat. Stat.:Outpatient Reason for Study:PAD (peripheral artery disease), Mixed hyperlipidemia, Primary hypertension Procedures: Study performed at [facility], [place], [place] and interpreted by [facility]. ++++++++++++++++++++++++++++++++++++ SUMMARY: ++++++++++++++++++++++++++++++++++++ MARC Rt: The resting MARC is 0.94. MARC Rt: This suggests borderline peripheral arterial disease. MARC Rt: Pulse volume tracings suggest no peripheral arterial occlusive disease. MARC Rt: The toe pressure is 92 mmHg. MARC Rt: The TBI is 0.67. MARC Rt: TBI is within abnormal range. MARC Lt: The resting MARC is 0.64. MARC Lt: This suggests moderate disease. MARC Lt: Pulse volume tracings suggest mild peripheral arterial occlusive disease. MARC Lt: The toe pressure is 53 mmHg. MARC Lt: The TBI is 0.39. MARC Lt: TBI is within abnormal range. ++++++++++++++++++++++++++++++++++++ FINDINGS: ++++++++++++++++++++++++++++++++++++ MARC Rt: The resting MARC is 0.94. This suggests borderline peripheral arterial disease. Pulse volume tracings suggest no peripheral arterial occlusive disease. The toe pressure is 92 mmHg. The TBI is 0.67. TBI is within abnormal range. MARC Lt: The resting MARC is 0.64. This suggests moderate disease. Pulse volume tracings suggest mild peripheral arterial occlusive disease. The toe pressure is 53 mmHg. The TBI is 0.39. TBI is within abnormal range. ++++++++++++++++++++++++++++++++++++ MEASUREMENTS: ++++++++++++++++++++++++++++++++++++ PRESSURES Right Brachial Brach P 137 mmHg Right Ankle DP AnkleDP P 126 mmHg Right Ankle PT AnklePT P 129 mmHg Right Great Toe GreatToe P 92 mmHg Right MARC PT MARC PT 0.942 Right MARC DP MARC DP 0.92 Right TBI TBI 0.672 Left Brachial Brach P 130 mmHg Left Ankle DP AnkleDP P 75 mmHg Left Ankle PT AnklePT P 88 mmHg Left Great Toe GreatToe P 53 mmHg Left MARC PT MARC PT 0.642 Left MARC DP MARC DP 0.547 Left TBI TBI 0.387 <Electronic Signature> 09/23/2024 04:47 PM Catarino Peterson M.D. Catarino Peterson MD VASC Final Result from Last 3 Months Insurance Care Teams Freezer Worker Relationship Specialty Start Date End Date Mandeep Lee MD [address] [place] [address] PCP - General FAMILY PRACTICE 01/06/24 Catarino Peterson MD [address] [place] [address] Consulting Physician INTERNAL MEDICINE 08/05/24
== END 2024-11-03 12:53 | disposition home or self-care (01) ==
PROVIDERS: PCP Family Medicine; Visit Provider Nurse Practitioner Family
DX: J84.10 Pulmonary fibrosis, unspecified (principal); R59.0 Localized enlarged lymph nodes
CPT/HCPCS: 71250